=== PATIENT | male | born 1975 | race Caucasian/White ===

== ENCOUNTER 2016-08-30 13:30 | Emergency (ER) | payer BC ==
--- NOTE | 2016-08-30 13:55 | ED Physician Documentation ---
Lower Extremity Problem - HISTORIAN Historian: patient - HPI Chief Complaint: Lower Extremity Problem Location of Injury: R leg Onset: other Timing: still present, worse Recent Injury: No Context: prolonged pressure on ext Quality: swelling Exacerbated By: nothing Relieved By: nothing Associated Symptoms: denies: chest pain, shortness of breath, rapid heart rate Further Comments: yes (Patient has had some swelling to the right lower leg over the last two weeks has become worse over the last 3 days. No hx of truama. No recent immobilization noted.) - ROS CONST: no problems. denies: fever, chills - PAST HX Past History: other (HTN, gout, hyperlipidemia) PE Risk Factors: hypertension Other History: denies: aortic aneurysm, CAD Surgeries/Procedures: none Allergies/Adverse Reactions: Allergies Allergy/AdvReac Type Severity Reaction Status Date / Time No Known Drug Allergies Allergy Verified 08/15/14 21:35 - SOCIAL HX Smoking History: non-smoker Alcohol Use: none Drug Use: none - FAMILY HX Family History: no significant history - VITAL SIGNS Vital Signs: Vital Signs Temp Pulse Resp BP Pulse Ox 101 H 16 148/104 99 08/30/16 13:32 08/30/16 13:32 08/30/16 13:32 08/30/16 13:32 - REVIEWED ASSESSMENTS Nursing Assessment Reviewed: Yes Vitals Reviewed: Yes ED Results Lab/Radiology - Radiology Radiology Impressions: US LLE no blood clots noted. - Orders Orders: ED Orders Category Date Time Status US EXTREMITY VEINS UNILAT [US] Stat Exams 08/30/16 Taken Lower Extremity Problem - EXAM General Appearance: no distress Hips: left hip: no evidence of injury, swelling, bilateral hip: non-tender, normal inspection, normal range of motion, N/A: ecchymosis Legs: left: no evidence of injury (some resloving echymosis to the medical left knee), ecchymosis (medial knee and ankle area), bilateral: non-tender, normal inspection, normal range of motion Knees: bilateral: non-tender, normal inspection, normal range of motion, no evidence of injury Ankle: left: ecchymosis (medial aspect) Foot: bilateral foot: non-tender, normal inspection, normal range of motion, no evidence of injury Neuro/Tendon: normal sensation, normal motor functions, normal tendon functions , responds to pain, no evidence tendon injury RESPIRATORY: no resp distress, chest non-tender, breath sounds normal. No: wheezes, rales, rhonchi CVS: reg rate & rhythm, heart sounds normal, no murmur JOINT: joints nml, nml ROM, Nml gait/weight bearing. No: ligamentous instability VASCULAR: no vascular compromise, pulses full/equal, pale/cool extremity NEURO/PSYCH: oriented X3, mood/affect nml, cognition normal SKIN: warm/dry, other (some varicosity tot he LLE) BACK: normal inspection Discharge Clincal Impression: Left leg swelling Referrals: Te Pryor MD [Primary Care Provider] - 2 Days Additional Instructions: Try to use some external compression to your leg. Keep elevated when possible. Condition: Stable Disposition: 01 HOME, SELF-CARE Decision to Admit: NO Date of Decison to Admit: 08/30/16 Decision Time: 14:06
[2016-08-30 15:21] VITALS: BP 180/100
--- NOTE | 2016-08-30 17:26 | Diagnostic Imaging Report ---
[facility] [address] [facility].[address] 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 Rule out deep venous thrombosis. Technique: Real time sonography of the left lower extremity is performed in transverse and longitudinal views. Doppler interrogation and color flow imaging are additionally used. Findings: There are normal Doppler wave forms from the interrogated vessels with normal respiratory fluctuation and augmentation. There is no echogenic thrombus identified within the vessel lumen. The veins compress normally. Prominent inguinal lymph node is evident although demonstrates morphologically normal appearance. Impression: 1. No evidence of deep venous thrombosis. Electronically signed on Aug 30, 2016 2:43:49 PM FERTILIZING MACHINE OPERATOR by: Alex LEE
== END 2016-08-30 15:15 | disposition home or self-care (01) ==
LOC: ED 13:30
DX: M79.89 Other specified soft tissue disorders (principal)
CPT/HCPCS: 93971; 99283

== ENCOUNTER 2018-02-09 08:30 | Outpatient (CLI) | payer BC ==
[2018-02-09 18:51] LABS: TOTAL PROTEIN 6.7 g/dL (6.0-8.5)
== END 2018-02-09 08:32 ==
LOC: LAB 08:30
PROVIDERS: ATTEND Family Medicine
DX: I10 Essential (primary) hypertension (principal); R73.9 Hyperglycemia, unspecified
CPT/HCPCS: 80053; 80061; 83036

== ENCOUNTER 2018-06-14 08:56 | Outpatient (CLI) | payer BC ==
[2018-06-14 09:36] LABS: eGFR (Non-African) > 60
== END 2018-06-14 14:14 ==
LOC: LAB 08:56
PROVIDERS: ATTEND Family Medicine
DX: E11.9 Type 2 diabetes mellitus without complications (principal)
CPT/HCPCS: 36415; 80053; 83036

== ENCOUNTER 2018-09-13 08:32 | Outpatient (CLI) | payer BC ==
[2018-09-13 09:02] LABS: eGFR (Non-African) > 60
== END 2018-09-13 08:33 ==
LOC: LAB 08:32
PROVIDERS: ATTEND Family Medicine
DX: E11.9 Type 2 diabetes mellitus without complications (principal); I10 Essential (primary) hypertension
CPT/HCPCS: 36415; 80053; 83036

== ENCOUNTER 2019-02-12 07:23 | Outpatient (CLI) | payer BC ==
[2019-02-12 08:34] LABS: A1C 8.4 % (<5.7); HDL 28 mg/dL (>40); eGFR (Non-African) > 60
== END 2019-02-12 07:25 ==
LOC: LAB 07:23
PROVIDERS: ATTEND Family Medicine
DX: E11.9 Type 2 diabetes mellitus without complications (principal); I10 Essential (primary) hypertension
CPT/HCPCS: 36415; 80053; 80061; 82043; 83036